=== PATIENT | male | born 1965 | race Native Hawaiian/Other Pacific Islander ===

== ENCOUNTER 2020-02-01 08:55 | Emergency (ER) | payer OTHER ==
[~2020-02-01] VITALS: Ht 188 cm; Wt 93.0 kg
[2020-02-01 09:30] LABS: PLATELET COUNT 270 K/uL (142-355)
[2020-02-01 09:45] LABS: PARTIAL THROMBOPLASTIN TIME 24.6 SECONDS (24.5-33.6)
[2020-02-01 09:48] LABS: POTASSIUM 3.6 mmol/L (3.6-5.2); SODIUM 141 mmol/L (136-145)
[2020-02-01 11:10] VITALS: BP 98/64; TEMP 98.5
== END 2020-02-01 11:10 | disposition home or self-care (01) ==
LOC: ED 09:09
PROVIDERS: Hospitalist
DX: J44.1 Chronic obstructive pulmonary disease with (acute) exacerbation (principal); J40 Bronchitis, not specified as acute or chronic; F17.210 Nicotine dependence, cigarettes, uncomplicated
CPT/HCPCS: 80053; 82550; 83880; 84484; 85027; 85610; 85730; 93005; 94664; 96365; 99284; J0696